=== PATIENT | male | born 1930 | race Caucasian/White ===

== ENCOUNTER 2016-07-12 15:58 | Outpatient (CLI) | payer MEDICARE, OTHER ==
[2016-07-12 16:19] LABS: ALT (SGPT) 21 U/L (0-55); AST (SGOT) 14 U/L (5-34); Albumin 3.1 g/dL (3.4-4.8); Alkaline Phosphatase 75 U/L (40-150); Anion Gap 16 mmol/L (10-20); BUN (Urea Nitrogen) 19 mg/dL (8.4-25.7); Bilirubin, Total 0.3 mg/dL (0.2-1.2); Calc. Creatinine Clearance 0 mL/min (70-130); Calcium 8.9 mg/dL (7.8-10.44); Carbon Dioxide 23 mmol/L (23-31); Chloride 105 mmol/L (98-107); Estimated GFR-MDRD 85; Globulin 3.5 g/dL (2.4-3.5); Glucose 111 mg/dL (83-110); Potassium 3.7 mmol/L (3.5-5.1); Protein, Total 6.6 g/dL (5.8-8.1); Sodium 140 mmol/L (136-145)
[2016-07-12 17:05] LABS: Valproic Acid (Depakene) Less than 12.5 ug/mL (50.0-100.0)
[2016-07-12 17:54] LABS: #Basophils 0.1 thou/uL (0.0-0.2); #Eosinphils 0.3 thou/uL (0.0-0.7); #Lymphocytes 2.3 thou/uL (1.20-3.40); #Neutrophils 10.8 thou/uL (1.40-6.50); %Basophils 0.4 % (0.0-1.0); %Eosinophils 2.4 % (0.0-10.0); %Lymphocytes 15.8 % (21.0-51.0); %Monocytes 6.8 % (0.0-10.0); %Neutrophils 74.6 % (42.0-75.0); Hemoglobin 14.1 g/dL (14.0-18.0); Mean Corpuscular Hemoglobin 29.1 pg (27.0-31.0); Mean Platelet Volume 6.9 fL (7.4-10.4); Platelet Count 315 thou/uL (130-400); RBC Distribution Width 12.6 % (11.5-14.5); Red Blood Cell (RBC) Count 4.86 mill/uL (4.70-6.10); White Blood Cell (WBC) Count 14.5 thou/uL (4.8-10.8)
== END 2016-07-12 15:59 ==
LOC: NAV NNR 15:58
PROVIDERS: ATTEND Internal Medicine
DX: I10 Essential (primary) hypertension (principal)
CPT/HCPCS: 80053; 80164; 84443; 85025

== ENCOUNTER 2016-10-12 18:00 | Outpatient (CLI) | payer MEDICARE, OTHER ==
[2016-10-12 21:09] LABS: #Basophils 0.1 thou/uL (0.0-0.2); #Eosinphils 0.2 thou/uL (0.0-0.7); #Lymphocytes 1.8 thou/uL (1.20-3.40); #Monocytes 0.7 thou/uL (0.11-0.59); #Neutrophils 7.4 thou/uL (1.40-6.50); %Basophils 0.6 % (0.0-1.0); %Eosinophils 1.7 % (0.0-10.0); %Lymphocytes 17.4 % (21.0-51.0); %Monocytes 6.9 % (0.0-10.0); %Neutrophils 73.4 % (42.0-75.0); Mean Corpuscular HGB CONC 31.7 g/dL (32.0-36.0); Mean Corpuscular Hemoglobin 28.6 pg (27.0-31.0); Mean Corpuscular Volume 90.2 fl (80.0-94.0); Mean Platelet Volume 7.4 fL (7.4-10.4); Platelet Count 250 thou/uL (130-400); RBC Distribution Width 13.4 % (11.5-14.5); Red Blood Cell (RBC) Count 5.24 mill/uL (4.70-6.10); White Blood Cell (WBC) Count 10.1 thou/uL (4.8-10.8)
[2016-10-12 21:23] LABS: ALT (SGPT) 14 U/L (8-55); AST (SGOT) 14 U/L (5-34); Albumin 3.7 g/dL (3.4-4.8); Alkaline Phosphatase 77 U/L (40-150); Anion Gap 15 mmol/L (10-20); BUN (Urea Nitrogen) 16 mg/dL (8.4-25.7); Bilirubin, Total 0.5 mg/dL (0.2-1.2); Calc. Creatinine Clearance 0 mL/min (70-130); Calcium 9.1 mg/dL (7.8-10.44); Carbon Dioxide 26 mmol/L (23-31); Chloride 104 mmol/L (98-107); Estimated GFR-MDRD 72; Globulin 2.9 g/dL (2.4-3.5); Glucose 135 mg/dL (83-110); Potassium 3.8 mmol/L (3.5-5.1); Protein, Total 6.6 g/dL (5.8-8.1); Sodium 141 mmol/L (136-145)
== END 2016-10-12 18:01 | disposition home or self-care (01) ==
LOC: NAV LABSP 18:00
PROVIDERS: ATTEND Internal Medicine
DX: I10 Essential (primary) hypertension (principal)
CPT/HCPCS: 36415; 80053; 84443; 85025

== ENCOUNTER 2016-11-30 12:50 | Outpatient (CLI) | payer MEDICARE, OTHER ==
[2016-11-30 14:19] LABS: ALT (SGPT) 9 U/L (8-55); AST (SGOT) 13 U/L (5-34); Albumin 4.1 g/dL (3.4-4.8); Alkaline Phosphatase 89 U/L (40-150); Anion Gap 13 mmol/L (10-20); BUN (Urea Nitrogen) 19 mg/dL (8.4-25.7); Bilirubin, Total 0.5 mg/dL (0.2-1.2); Calc. Creatinine Clearance 0 mL/min (70-130); Carbon Dioxide 27 mmol/L (23-31); Chloride 104 mmol/L (98-107); Estimated GFR-MDRD 72; Potassium 4.3 mmol/L (3.5-5.1); Protein, Total 7.1 g/dL (5.8-8.1); Sodium 140 mmol/L (136-145)
[2016-11-30 14:24] LABS: #Basophils 0.1 thou/uL (0.0-0.2); #Eosinphils 0.3 thou/uL (0.0-0.7); #Lymphocytes 5.2 thou/uL (1.20-3.40); #Neutrophils 5.3 thou/uL (1.40-6.50); %Basophils 0.6 % (0.0-1.0); %Eosinophils 2.7 % (0.0-10.0); %Lymphocytes 43.7 % (21.0-51.0); %Monocytes 8.8 % (0.0-10.0); %Neutrophils 44.2 % (42.0-75.0); Hemoglobin 15.2 g/dL (14.0-18.0); Mean Corpuscular HGB CONC 31.9 g/dL (32.0-36.0); Mean Corpuscular Hemoglobin 28.9 pg (27.0-31.0); Mean Corpuscular Volume 90.6 fl (80.0-94.0); Mean Platelet Volume 7.3 fL (7.4-10.4); Platelet Count 180 thou/uL (130-400); RBC Distribution Width 14.2 % (11.5-14.5); Red Blood Cell (RBC) Count 5.26 mill/uL (4.70-6.10); White Blood Cell (WBC) Count 11.9 thou/uL (4.8-10.8)
[2016-11-30 15:17] LABS: Glucose 55 mg/dL (83-110)
== END 2016-11-30 12:51 | disposition home or self-care (01) ==
LOC: NAV LABSP 12:50
PROVIDERS: ATTEND Internal Medicine
DX: I50.9 Heart failure, unspecified (principal); E03.9 Hypothyroidism, unspecified
CPT/HCPCS: 36415; 80053; 84443; 85025

== ENCOUNTER 2017-08-31 13:11 | Emergency (ER) | payer MEDICARE, OTHER ==
[2017-08-31 13:53] LABS: #Basophils 0.1 thou/uL (0.0-0.2); #Eosinphils 0.2 thou/uL (0.0-0.7); #Lymphocytes 1.9 thou/uL (1.20-3.40); #Monocytes 0.7 thou/uL (0.11-0.59); %Eosinophils 2.2 % (0.0-10.0); %Lymphocytes 21.5 % (21.0-51.0); %Monocytes 8.1 % (0.0-10.0); %Neutrophils 67.2 % (42.0-75.0); Hemoglobin 15.4 g/dL (14.0-18.0); Mean Corpuscular HGB CONC 32.1 g/dL (32.0-36.0); Mean Corpuscular Hemoglobin 28.2 pg (27.0-31.0); Mean Platelet Volume 7.5 fL (7.4-10.4); Platelet Count 163 thou/uL (130-400); RBC Distribution Width 12.9 % (11.5-14.5); Red Blood Cell (RBC) Count 5.44 mill/uL (4.70-6.10); White Blood Cell (WBC) Count 8.9 thou/uL (4.8-10.8)
[2017-08-31 14:05] LABS: CKMB 1.7 ng/mL (0-6.6); Troponin I Less than 0.010 ng/mL (< 0.028)
[2017-08-31 14:07] LABS: ALT (SGPT) 8 U/L (8-55); AST (SGOT) 12 U/L (5-34); Alkaline Phosphatase 97 U/L (40-150); Anion Gap 16 mmol/L (10-20); BUN (Urea Nitrogen) 21 mg/dL (8.4-25.7); Bilirubin, Total 0.6 mg/dL (0.2-1.2); CK (CPK) 48 U/L (30-200); Calc. Creatinine Clearance 0 mL/min (70-130); Calcium 9.2 mg/dL (7.8-10.44); Carbon Dioxide 25 mmol/L (23-31); Chloride 104 mmol/L (98-107); Estimated GFR-MDRD 63; Globulin 3.1 g/dL (2.4-3.5); Glucose 135 mg/dL (83-110); Potassium 4.8 mmol/L (3.5-5.1); Protein, Total 7.1 g/dL (5.8-8.1); Sodium 140 mmol/L (136-145)
--- NOTE | 2017-08-31 14:54 | RAD ---
2 VIEWS LEFT HIP: Date: 08/31/17 INDICATION: Left hip injury. FINDINGS: There is a lucency overlying the left ischial tuberosity on both images that appears to project as a skin fold. No definite displaced fracture is evident. There is a left hip endoprosthesis that project s in the expected position. There are vascular calcifications associated with the soft tissues of the left upper thigh. There is diffuse osteopenia. IMPRESSION: 1. No definite acute fracture or subluxation demonstrated. 2. Lucency projecting over the left ischial tuberosity is likely related to a gluteal skin fold. 3. Left hip endoprosthesis projects in the expected position without gross evidence of complication. POS: [facility]
== END 2017-08-31 14:55 | disposition home or self-care (01) ==
LOC: NAV ERS 13:11
DX: S80.212A Abrasion, left knee, initial encounter (principal); I25.10 Atherosclerotic heart disease of native coronary artery without angina pectoris; I11.0 Hypertensive heart disease with heart failure; I50.9 Heart failure, unspecified; E78.5 Hyperlipidemia, unspecified; E03.9 Hypothyroidism, unspecified; F03.90 Unspecified dementia, unspecified severity, without behavioral disturbance, psychotic disturbance, mood disturbance, and anxiety; F20.9 Schizophrenia, unspecified; Z87.891 Personal history of nicotine dependence; Z86.73 Personal history of transient ischemic attack (TIA), and cerebral infarction without residual deficits; Z79.899 Other long term (current) drug therapy; W19.XXXA Unspecified fall, initial encounter
CPT/HCPCS: 36415; 80053; 82553; 84484; 85025; 93005

== ENCOUNTER 2017-10-10 13:09 | Outpatient (CLI) | payer MEDICARE, OTHER ==
[2017-10-10 14:22] LABS: #Basophils 0.1 thou/uL (0.0-0.2); #Eosinphils 0.2 thou/uL (0.0-0.7); #Monocytes 0.7 thou/uL (0.11-0.59); #Neutrophils 5.8 thou/uL (1.40-6.50); %Basophils 0.7 % (0.0-1.0); %Eosinophils 1.9 % (0.0-10.0); %Lymphocytes 30.5 % (21.0-51.0); %Monocytes 7.3 % (0.0-10.0); %Neutrophils 59.6 % (42.0-75.0); Mean Corpuscular HGB CONC 31.1 g/dL (32.0-36.0); Mean Corpuscular Hemoglobin 27.4 pg (27.0-31.0); Mean Corpuscular Volume 88.1 fL (78.0-98.0); Mean Platelet Volume 7.8 fL (7.4-10.4); Platelet Count 258 thou/uL (130-400); RBC Distribution Width 13.1 % (11.5-14.5); Red Blood Cell (RBC) Count 5.46 mill/uL (4.70-6.10); White Blood Cell (WBC) Count 9.7 thou/uL (4.8-10.8)
[2017-10-10 14:32] LABS: ALT (SGPT) 10 U/L (8-55); AST (SGOT) 11 U/L (5-34); Albumin 3.9 g/dL (3.4-4.8); Alkaline Phosphatase 99 U/L (40-150); Anion Gap 17 mmol/L (10-20); BUN (Urea Nitrogen) 17 mg/dL (8.4-25.7); Bilirubin, Total 0.4 mg/dL (0.2-1.2); Calc. Creatinine Clearance 0 mL/min (70-130); Calcium 9.1 mg/dL (7.8-10.44); Carbon Dioxide 26 mmol/L (23-31); Chloride 103 mmol/L (98-107); Estimated GFR-MDRD 82; Globulin 2.9 g/dL (2.4-3.5); Glucose 85 mg/dL (83-110); Potassium 3.9 mmol/L (3.5-5.1); Protein, Total 6.8 g/dL (5.8-8.1); Sodium 142 mmol/L (136-145)
== END 2017-10-10 13:10 ==
LOC: NAV LABSP 13:09
PROVIDERS: ATTEND Internal Medicine
DX: I69.993 Ataxia following unspecified cerebrovascular disease (principal); J44.9 Chronic obstructive pulmonary disease, unspecified; I10 Essential (primary) hypertension
CPT/HCPCS: 36415; 80053; 85025

== ENCOUNTER 2017-12-31 12:54 | Inpatient (IN) | payer MEDICARE, OTHER ==
--- NOTE | 2017-12-31 14:23 | RAD ---
LEFT HIP 2 VIEWS: Date; 12/31/17 HISTORY: Pain. COMPARISON: Radiograph dated 08/31/17. FINDINGS: There appears to be a transversely oriented fracture of the acetabulum. Moderate vascular calcificati ons. IMPRESSION: Findings concerning for a transversely oriented fracture of the acetabulum. POS: [facility]
--- NOTE | 2017-12-31 15:39 | CT ---
CT PELVIS WITHOUT CONTRAST: Date: 12/31/17 HISTORY: Trauma. Fall. COMPARISON: Radiographs same date. FINDINGS: There is a destructive mass in the left ilium extending across the SI joint to involve the sacrum. Th ere is peripheral periosteal reaction. There is also a fracture of the left acetabulum extending into the posterior column and anterior column. There is fracture of the left superior pubic ramus involvi ng the left pubic root, as well as the left inferior pubic ramus. Old right-sided pubic rami fracture s. Large left pelvic side wall hematoma. IMPRESSION: Likely a pathologic fracture of the left hip. There is a both column left acetabular fracture throug h a lytic process of the left ilium which extends to the left SI joint and to the acetabulum. Large p elvic side wall hematoma. Left superior and inferior pubic rami fractures are present. POS: [facility]
[2017-12-31] MEDS ORDERED: Acetaminophen 500 MG TAB ONE (15:57)
[2017-12-31] MEDS ORDERED: Bacitracin Zinc 1 Packet ONE (16:05)
[2017-12-31] MEDS ORDERED: Acetaminophen 500 MG TAB PO SCH ×2 (18:00→22:00)
[2017-12-31] MEDS ORDERED: Acetaminophen 325 MG TAB PO PRN (19:23)
[2017-12-31] MEDS ORDERED: Guaifenesin DM 100-10/5 ML UDCUP PO PRN (19:23)
[2017-12-31] MEDS: Famotidine 20 MG TAB PO SCH (21:56)
[2017-12-31] MEDS: Docusate 100 MG CAP PO SCH (21:56)
[2018-01-01] MEDS: HYDROcodone/Acetaminophen 5/325 mg Tablet PO PRN ×4 (05:40→20:39)
[2018-01-01] MEDS: Levothyroxine Sodium 100 MCG TAB PO SCH (05:40)
[2018-01-01] MEDS: Amlodipine 5 MG TAB PO SCH (08:31)
[2018-01-01] MEDS: Docusate 100 MG CAP PO SCH ×3 (08:31→20:42)
[2018-01-01] MEDS: Famotidine 20 MG TAB PO SCH ×3 (08:31→20:43)
[2018-01-01] MEDS: Divalproex Sodium 125 mg Sprinkle Capsule PO SCH (08:31)
[2018-01-01] MEDS: Multivitamin W/ Minerals 1 TAB PO SCH (08:31)
[2018-01-01 11:23] LABS: #Basophils 0.1 thou/uL (0.0-0.2); #Eosinphils 0.3 thou/uL (0.0-0.7); #Lymphocytes 1.9 thou/uL (1.20-3.40); #Monocytes 0.8 thou/uL (0.11-0.59); #Neutrophils 7.5 thou/uL (1.40-6.50); %Basophils 0.7 % (0.0-1.0); %Eosinophils 2.5 % (0.0-10.0); %Lymphocytes 18.1 % (21.0-51.0); %Monocytes 7.5 % (0.0-10.0); %Neutrophils 71.2 % (42.0-75.0); Hemoglobin 11.7 g/dL (14.0-18.0); Mean Corpuscular HGB CONC 32.7 g/dL (32.0-36.0); Mean Corpuscular Hemoglobin 28.6 pg (27.0-31.0); Mean Corpuscular Volume 87.4 fL (78.0-98.0); Mean Platelet Volume 7.6 fL (7.4-10.4); Platelet Count 222 thou/uL (130-400); RBC Distribution Width 12.9 % (11.5-14.5); Red Blood Cell (RBC) Count 4.08 mill/uL (4.70-6.10); White Blood Cell (WBC) Count 10.6 thou/uL (4.8-10.8)
[2018-01-01 11:36] LABS: ALT (SGPT) 10 U/L (8-55); AST (SGOT) 11 U/L (5-34); Albumin 3.1 g/dL (3.4-4.8); Alkaline Phosphatase 96 U/L (40-150); Anion Gap 13 mmol/L (10-20); BUN (Urea Nitrogen) 23 mg/dL (8.4-25.7); Bilirubin, Total 0.6 mg/dL (0.2-1.2); Calc. Creatinine Clearance 40 mL/min (70-130); Calcium 8.6 mg/dL (7.8-10.44); Carbon Dioxide 26 mmol/L (23-31); Chloride 103 mmol/L (98-107); Estimated GFR-MDRD 70; Globulin 2.9 g/dL (2.4-3.5); Glucose 95 mg/dL (83-110); Sodium 138 mmol/L (136-145)
[2018-01-01] MEDS ORDERED: Haloperidol Lactate 5 MG/ML VIAL IM SCH (12:45)
[2018-01-01 13:41] VITALS: BMI 19.0
[2018-01-02] MEDS: HYDROcodone/Acetaminophen 5/325 mg Tablet PO PRN ×3 (03:49→15:40)
[2018-01-02] MEDS: Levothyroxine Sodium 100 MCG TAB PO SCH (06:04)
[2018-01-02 07:57] VITALS: BP 127/56; TEMP 98.7
[2018-01-02] MEDS: Docusate 100 MG CAP PO SCH (09:04)
[2018-01-02] MEDS: Multivitamin W/ Minerals 1 TAB PO SCH (09:04)
[2018-01-02] MEDS: Famotidine 20 MG TAB PO SCH (09:04)
[2018-01-02] MEDS: Amlodipine 5 MG TAB PO SCH (09:04)
[2018-01-02] MEDS: Divalproex Sodium 125 mg Sprinkle Capsule PO SCH (09:04)
--- NOTE | 2018-01-04 08:31 | DIS ---
DATE OF ADMISSION: 12/31/2017 DATE OF DISCHARGE: 01/02/2018 FINAL DIAGNOSES: 1. Pelvic fracture in the acetabulum and pubic ramus. 2. Stable hypertension. 3. Stable hyperlipidemia. 4. Stable hypothyroidism. 5. Mild dementia. 6. Chronic obstructive pulmonary disease. HOSPITAL COURSE: Patient is an 87-year-old, white male living at the assisted secondary to demen tia, who has fallen and suffered pain in the left hip, was found to have a pathologic fracture of the left acetabulum and pelvic ramus, but with no left femur fracture, was admitted to the hospital for pain relief, had good pain relief, but was unable to cooperate with any therapy, he refused because o f his dementia. His bone disease was evaluated with a normal protein electrophoresis and a normal PS A. As mentioned above, he appeared to be comfortable at rest, on oral pain medications, and therefor e, he is felt to be stable to be transferred back to the assisted on medications of amlodipine 5 daily, levothyroxine 100 mcg daily, Depakote 125 daily, Tylenol as needed for pain. Follow up with ashli cabrera at the assisted. On discharge, his vital signs showed him to have blood pressure of 127/56 , temperature is 98, pulse 79, respirations 18, O2 sats 94% on room air. Lungs clear with decreased breath sounds. Cardiac examination showed regular rate and rhythm. No gallops or murmurs. Abdomen was soft and nontender.
--- NOTE | 2018-01-04 08:31 | HP ---
DATE OF ADMISSION: 12/31/2017 HISTORY OF PRESENT ILLNESS: The patient is an 87-year-old white male living in residential secondar y to mild dementia, COPD, hypertension who fell and suffered pain in his left leg was evaluated and f ound to have pelvic fracture, acetabular fracture and pubic ramus fracture, but with no femur fractur e, was admitted to [facility] for pain relief, having no problems with shortness of breath, wa s comfortable after pain meds and no problem with bleeding or changes in his vital signs. PAST MEDICAL HISTORY: Includes congestive heart failure, hypothyroidism, hyperlipidemia, hypertensio n, COPD, ischemic cerebrovascular accident. PAST SURGICAL HISTORY: Positive for open reduction internal fixation left hip fracture. SOCIAL HISTORY: Lives at the residential was a former smoker and drinker, none in 10 years. No kno wn allergies. MEDICATIONS: Including levothyroxine 100 mcg daily, Norvasc 5 daily. REVIEW OF SYSTEMS: Negative with the patient is a poor historian. PHYSICAL EXAMINATION: VITAL SIGNS: Showed blood pressure of 119/62, respirations 20, temperature 97.6. HEENT: Pupils are equal, round, and react to light and accommodation. Sclerae are anicteric. Conju nctivae pale. Oral mucous membranes well hydrated. NECK: Supple. There are no nodes or masses. JVP is not elevated. LUNGS: Clear with decreased breath sounds. CARDIAC: Regular rhythm. No gallops or murmurs. ABDOMEN: Soft, nontender with no masses or organomegaly. SKIN/EXTREMITIES: An abrasion on the left elbow. There is tenderness to palpation of the left hip e xternally rotated. X-rays show above-mentioned acetabular fracture, pubic ramus fracture. ASSESSMENT AND PLAN: 1. Pelvic fracture, stable with white count 10,600, hematocrit 35, hemoglobin 11. Sodium 138, potas sium 4.0, chloride 103, bicarb 26, BUN 23, creatinine 1.01, albumin 3.1, but with CT report stating t hat possibly pathologic fracture with a lytic process in the left ilium. 2. Chronic obstructive pulmonary disease. 3. Hypertension. PLAN: Admit to the hospital for pain relief, evaluate for lytic pathologic bone disease with p rotein electrophoresis and with PSA.
[2018-01-08 17:13] LABS: A/G Ratio 0.8 (0.7-1.7); Albumin 2.7 g/dL (2.9-4.4); Alpha 1 0.5 g/dL (0.0-0.4); Beta 0.8 g/dL (0.7-1.3); Gamma 1.2 g/dL (0.4-1.8); Globulin, Total 3.4 g/dL (2.2-3.9); M-Spike Not Observed g/dL (Not Observed)
== END 2018-01-02 19:35 | DRG 544 ==
LOC: NAV ERS 12:54 → NAV ACUTE 17:05
PROVIDERS: ADMIT Internal Medicine; ATTEND Internal Medicine
DX: M84.454A Pathological fracture, pelvis, initial encounter for fracture (principal); F03.90 Unspecified dementia, unspecified severity, without behavioral disturbance, psychotic disturbance, mood disturbance, and anxiety; I25.10 Atherosclerotic heart disease of native coronary artery without angina pectoris; E03.9 Hypothyroidism, unspecified; E78.5 Hyperlipidemia, unspecified; I10 Essential (primary) hypertension; Z86.73 Personal history of transient ischemic attack (TIA), and cerebral infarction without residual deficits; Z87.891 Personal history of nicotine dependence; W18.09XA Striking against other object with subsequent fall, initial encounter; Y92.129 Unspecified place in nursing home as the place of occurrence of the external cause; J44.9 Chronic obstructive pulmonary disease, unspecified; Z91.81 History of falling
CPT/HCPCS: 36415; 72192; 80053; 84153; 84165; 85025; J1630

== ENCOUNTER 2018-02-13 13:33 | Outpatient (CLI) | payer MEDICARE, OTHER ==
[2018-02-13 16:37] LABS: Bilirubin Small (Negative); Blood, Urine Small (Negative); Clarity Cloudy (Clear); Glucose, Urine (Dipstick) Negative (Negative); Leukocyte Moderate (Negative); Nitrite Positive (Negative); Protein, Urine (Dipstick) 30 mg/dL (Neg-Trace); pH, Urine 5.5 (5.0-9.0)
[2018-02-13 16:38] LABS: Bacteria/HPF 2+ HPF (None Seen)
== END 2018-02-13 13:34 | disposition home or self-care (01) ==
LOC: NAV NNR 13:33
PROVIDERS: ATTEND Internal Medicine
DX: N39.0 Urinary tract infection, site not specified (principal)
CPT/HCPCS: 81003; 81015; 87086

== ENCOUNTER 2018-02-13 16:19 | Inpatient (IN) | payer MEDICARE, OTHER ==
[2018-02-13] MEDS ORDERED: Piperacillin/Tazobactam 3.375 GM VIAL ONE (16:49)
[2018-02-13] MEDS ORDERED: Sodium Chloride 0.9% 1,000 ML ONE ×2 (17:00→18:27)
[2018-02-13 17:21] LABS: ALT (SGPT) 16 U/L (8-55); AST (SGOT) 19 U/L (5-34); Albumin 3.3 g/dL (3.4-4.8); Alkaline Phosphatase 135 U/L (40-150); Anion Gap 16 mmol/L (10-20); BUN (Urea Nitrogen) 40 mg/dL (8.4-25.7); Bilirubin, Total 0.6 mg/dL (0.2-1.2); Calc. Creatinine Clearance 0 mL/min (70-130); Calcium 9.3 mg/dL (7.8-10.44); Carbon Dioxide 26 mmol/L (23-31); Chloride 104 mmol/L (98-107); Estimated GFR-MDRD 50; Globulin 3.7 g/dL (2.4-3.5); Glucose 95 mg/dL (83-110); Potassium 3.9 mmol/L (3.5-5.1); Sodium 142 mmol/L (136-145)
[2018-02-13 17:22] LABS: CKMB 0.7 ng/mL (0-6.6); Troponin I 0.018 ng/mL (< 0.028)
[2018-02-13] MEDS ORDERED: Sodium Chloride 0.9% 250 ML 250 ML ONE (17:29)
[2018-02-13 17:36] LABS: Band 2 % (5-11); Hemoglobin 10.6 g/dL (14.0-18.0); Lymphocytes 14 % (21-51); MDiff Complete? YES; Mean Corpuscular HGB CONC 31.2 g/dL (32.0-36.0); Mean Corpuscular Hemoglobin 27.5 pg (27.0-31.0); Mean Corpuscular Volume 88.1 fL (78.0-98.0); Mean Platelet Volume 7.1 fL (7.4-10.4); Monocytes 1 % (0-10); Neutrophil 83 % (42-75); PLT Morphology Comment Appears Adequate; Platelet Count 395 thou/uL (130-400); RBC Distribution Width 13.9 % (11.5-14.5); RBC Morphology Normal; Red Blood Cell (RBC) Count 3.87 mill/uL (4.70-6.10); White Blood Cell (WBC) Count 22.5 thou/uL (4.8-10.8)
[2018-02-13] MEDS ORDERED: Ondansetron ODT 4 MG TAB PO PRN (20:15)
[2018-02-13] MEDS ORDERED: Guaifenesin DM 100-10/5 ML UDCUP PO PRN (20:15)
[2018-02-13] MEDS ORDERED: Sodium Chloride 0.9% 1,000 ML IV SCH (20:30)
[2018-02-13] MEDS ORDERED: Famotidine 20 MG TAB PO SCH (21:00)
[2018-02-13] MEDS ORDERED: Vancomycin HCl 1 GM in Sodium Chloride 0.9% 250 ML 250 ML IVPB SCH (21:00)
[2018-02-13] MEDS: Sodium Chloride 0.9% 1,000 ML IV SCH (22:19)
[2018-02-13] MEDS: PROVENTIL INHALER 6.7 G (200 INHALATIONS) INH SCH (22:54)
[2018-02-13] MEDS: Piperacillin/Tazobactam 2.25 GM in Sodium Chloride 0.9% 100 ML IVPB SCH (22:55)
[2018-02-13] MEDS: Docusate 100 MG CAP PO SCH (22:55)
[2018-02-14] MEDS ORDERED: Piperacillin/Tazobactam 3.375 GM in Sodium Chloride 0.9% 100 ML IVPB SCH (01:00)
[2018-02-14] MEDS: PROVENTIL INHALER 6.7 G (200 INHALATIONS) INH SCH ×6 (02:04→21:11)
[2018-02-14] MEDS: Sodium Chloride 0.9% 1,000 ML IV SCH (04:30)
[2018-02-14 05:14] LABS: #Basophils 0.1 thou/uL (0.0-0.2); #Lymphocytes 2.4 thou/uL (1.20-3.40); #Neutrophils 16.5 thou/uL (1.40-6.50); %Basophils 0.3 % (0.0-1.0); %Eosinophils 0.1 % (0.0-10.0); %Lymphocytes 11.8 % (21.0-51.0); %Monocytes 5.1 % (0.0-10.0); %Neutrophils 82.7 % (42.0-75.0); Hemoglobin 9.4 g/dL (14.0-18.0); Mean Corpuscular HGB CONC 32.2 g/dL (32.0-36.0); Mean Corpuscular Hemoglobin 28.3 pg (27.0-31.0); Mean Platelet Volume 6.9 fL (7.4-10.4); Platelet Count 301 thou/uL (130-400); RBC Distribution Width 13.8 % (11.5-14.5); Red Blood Cell (RBC) Count 3.33 mill/uL (4.70-6.10)
[2018-02-14 05:34] LABS: ALT (SGPT) 13 U/L (8-55); AST (SGOT) 15 U/L (5-34); Albumin 2.9 g/dL (3.4-4.8); Alkaline Phosphatase 116 U/L (40-150); Anion Gap 14 mmol/L (10-20); BUN (Urea Nitrogen) 32 mg/dL (8.4-25.7); Bilirubin, Total 0.6 mg/dL (0.2-1.2); Calc. Creatinine Clearance 35 mL/min (70-130); Calcium 8.5 mg/dL (7.8-10.44); Carbon Dioxide 22 mmol/L (23-31); Chloride 113 mmol/L (98-107); Estimated GFR-MDRD 67; Globulin 3.1 g/dL (2.4-3.5); Glucose 101 mg/dL (83-110); Potassium 4.4 mmol/L (3.5-5.1); Sodium 145 mmol/L (136-145)
[2018-02-14] MEDS: Levothyroxine Sodium 50 MCG TAB PO SCH (06:07)
[2018-02-14] MEDS: Piperacillin/Tazobactam 2.25 GM in Sodium Chloride 0.9% 100 ML IVPB SCH ×4 (06:08→23:57)
[2018-02-14] MEDS ORDERED: Sodium Chloride 0.9% 1,000 ML IV SCH (06:40)
[2018-02-14] MEDS: Amlodipine 5 MG TAB PO SCH (08:35)
[2018-02-14] MEDS: Famotidine 20 MG TAB PO SCH (08:35)
[2018-02-14] MEDS: Multivitamin W/ Minerals 1 TAB PO SCH (08:36)
[2018-02-14] MEDS: Ketotifen Fumarate 0.025% Ophth Soln 5 ml Bottle EA EYE SCH ×2 (08:36→21:10)
[2018-02-14] MEDS: Docusate 100 MG CAP PO SCH ×2 (08:36→21:10)
[2018-02-14] MEDS ORDERED: Non-Formulary Item 1 EACH (Olopatadine Hcl [Pataday] 1 DROP) EA EYE SCH (09:00)
[2018-02-14] MEDS: Vancomycin HCl 500 MG in Sodium Chloride 0.9% 100 ML IVPB SCH (18:09)
--- NOTE | 2018-02-14 19:44 | RAD ---
PORTABLE SEMI UPRIGHT FRONTRAL CHEST RADIOGRAPH: Date: 02-14-18 Comparison: 05-15-15 History: Pneumonia. FINDINGS: There is calcification along the diaphragmatic pleura on the right. Shallow inspiration limits detail ed assessment. There is mild increased linear density in the right suprahilar region and left suprahi lar region which may represent mild infiltrate, volume loss, or scar. No focal consolidation. There i s increased density in the medial left lung base, significance uncertain. Old left sided rib fracture s are noted. IMPRESSION: Shallow inspiration limits assessment. Increased areas of density noted in bilateral perihilar region s and in the medial left lung base. Infectious pneumonitis is not excluded. A follow up PA and latera l chest radiograph with better inspiration is advised for further assessment. If symptoms persist, CT may be beneficial as well. POS: [facility]
--- NOTE | 2018-02-14 20:06 | PRG ---
DATE OF SERVICE: 02/14/2018 SUBJECTIVE: The patient is resting in bed, alert, cheerful, in no respiratory distress. No cough, nausea, vomiting, or chest pain. The patient is eating well. OBJECTIVE: VITAL SIGNS: Show blood pressure is 133/59, respirations 22, O2 saturation is 94% on 2 L, and afebrile. LUNGS: Show few rales and rhonchi in the right base. CARDIAC: Regular rhythm. ABDOMEN: Soft and nontender. LABORATORY DATA: Improved to 20,000, hematocrit 29, and hemoglobin 9.4. BUN is improved to 32 and creatinine 1.04. BNP is slightly elevated at 147. Sodium is 145, potassium 4.4, chloride 113, and bicarb 22. ASSESSMENT AND PLAN: 1. Resolving pneumonia. No evidence of sepsis. 2. Chronic obstructive pulmonary disease, stable on handheld nebulizers. 3. Probable diastolic heart failure with mildly elevated BNP. We will decrease and repeat chest x-ray. Job ID: [id number]
[2018-02-15] MEDS: PROVENTIL INHALER 6.7 G (200 INHALATIONS) INH SCH ×6 (00:36→20:20)
--- NOTE | 2018-02-15 03:07 | HP ---
HISTORY OF PRESENT ILLNESS: The patient is an 87-year-old white [facility] with diagnosis of dementia, COPD, hypertension, who was recently followed and suffered an acetabular pubic ramus fracture and has been bedridden since that time, but had been doing well with no dyspnea, chest pain or shortness of breath until several days prior to admission, began to have increasing cough and some respiratory distress. He had chest x-ray done, which showed right lower lobe infiltrate and an increased white count to 31,000. He did not have any fever, but was felt to require transfer to the hospital. He was evaluated in the emergency room, where the ER physician agreed that he required admission. He was not septic with normal lactate and normal vital signs and oxygenation. He was confused, but this was at his baseline. He was therefore felt to be able to be admitted to [facility] for treatment of his healthcare-associated pneumonia. PAST MEDICAL HISTORY: As mentioned above is remarkable for COPD, also for history of fall and multiple rib fractures in the distal past. He also has a history of hypertension and congestive heart failure, a distant history of CVA and chronic hypothyroidism as well as progressive dementia. PAST SURGICAL HISTORY: Positive for open reduction and internal fixation of a left hip fracture. SOCIAL HISTORY: [facility]. He is a nonsmoker and nondrinker, but was a former smoker. ALLERGIES: HE HAS NO KNOWN ALLERGIES. MEDICATIONS: His medications include at this time: 1. Amlodipine 5 mg daily. 2. Depakote 250 mg daily. 3. Famotidine 20 mg twice daily. 4. Levothyroxine 50 mcg daily. 5. Multivitamins. 6. Tylenol No.3. REVIEW OF SYSTEMS: Essentially negative as the patient is a very poor historian. He is denying chest pain, shortness of breath, cough, nausea or vomiting. PHYSICAL EXAMINATION: VITAL SIGNS: His blood pressure is 159/92, respirations 22, O2 sats 84% on room air which increased to 96% with 2 L, and pulse 67. He is afebrile. HEENT: Pupils are equal, round, and reactive to light and accommodation. Sclerae anicteric. There are dental caries. Oral mucous membranes, well hydrated. NECK: Some torticollis chronically with no pain, stiffness or swelling. LUNGS: Decreased breath sounds with few rales and rhonchi on the right base. Rare wheezes and rhonchi with no rales. CARDIAC: Regular rhythm. No gallops or murmurs. ABDOMEN: Soft and nontender with no masses or organomegaly. SKIN/EXTREMITIES: No edema, clubbing or cyanosis, do show some tenderness to palpation of the left hip on movement. NEUROLOGIC: Intact except for mild confusion, oriented to person only. LABORATORY DATA: White count 22,500, hematocrit 34, and hemoglobin 10. Sodium 142, potassium 3.9, chloride 104, bicarb 26, BUN 40, creatinine 1.34, and lactate 1.7. Liver function is normal. Cardiac enzyme is normal. Chest x-ray is reported as showing a right lower lobe infiltrate. ASSESSMENT: Right lower lobe healthcare-associated pneumonia, being treated with broad-spectrum vancomycin and Zosyn. Blood cultures have been done and results of which are pending. He will be continued on handheld nebulizers q.i.d. and p.r.n., 2 L of oxygen to maintain saturations greater than 93%, and start on IV fluids at 125 an hour to ensure no increase in possible sepsis or septic shock. Prognosis is guarded. He is not to be resuscitated as per family's request. Job ID: [id number]
[2018-02-15] MEDS: Levothyroxine Sodium 50 MCG TAB PO SCH (05:08)
[2018-02-15] MEDS: Piperacillin/Tazobactam 2.25 GM in Sodium Chloride 0.9% 100 ML IVPB SCH ×4 (05:33→23:54)
[2018-02-15] MEDS: Ketotifen Fumarate 0.025% Ophth Soln 5 ml Bottle EA EYE SCH ×2 (08:43→20:22)
[2018-02-15] MEDS: Docusate 100 MG CAP PO SCH ×2 (08:44→20:20)
[2018-02-15] MEDS: Acetaminophen 325 MG TAB PO PRN ×2 (08:44→17:35)
[2018-02-15] MEDS: Famotidine 20 MG TAB PO SCH (08:44)
[2018-02-15] MEDS: Amlodipine 5 MG TAB PO SCH (08:44)
[2018-02-15] MEDS: Multivitamin W/ Minerals 1 TAB PO SCH (08:44)
[2018-02-15] MEDS: Sodium Chloride 0.9% 1,000 ML IV SCH (11:40)
[2018-02-15 17:24] LABS: Vancomycin, Trough 7.6 ug/mL
[2018-02-15] MEDS: Vancomycin HCl 500 MG in Sodium Chloride 0.9% 100 ML IVPB SCH (17:35)
[2018-02-15] MEDS ORDERED: Vancomycin HCl 750 MG in Sodium Chloride 0.9% 250 ML 250 ML IVPB SCH (20:00)
[2018-02-16] MEDS: PROVENTIL INHALER 6.7 G (200 INHALATIONS) INH SCH ×6 (00:35→20:01)
[2018-02-16 05:12] VITALS: BMI 16.2
[2018-02-16] MEDS: Piperacillin/Tazobactam 2.25 GM in Sodium Chloride 0.9% 100 ML IVPB SCH ×3 (05:15→18:02)
[2018-02-16] MEDS: Levothyroxine Sodium 50 MCG TAB PO SCH (05:15)
[2018-02-16 05:18] LABS: #Basophils 0.1 thou/uL (0.0-0.2); #Lymphocytes 1.5 thou/uL (1.20-3.40); #Monocytes 0.8 thou/uL (0.11-0.59); #Neutrophils 9.4 thou/uL (1.40-6.50); %Basophils 0.4 % (0.0-1.0); %Eosinophils 0.4 % (0.0-10.0); %Lymphocytes 12.4 % (21.0-51.0); %Monocytes 7.1 % (0.0-10.0); %Neutrophils 79.7 % (42.0-75.0); Hemoglobin 8.8 g/dL (14.0-18.0); Mean Corpuscular HGB CONC 31.2 g/dL (32.0-36.0); Mean Corpuscular Hemoglobin 27.6 pg (27.0-31.0); Mean Corpuscular Volume 88.4 fL (78.0-98.0); Mean Platelet Volume 7.3 fL (7.4-10.4); Platelet Count 293 thou/uL (130-400); RBC Distribution Width 13.8 % (11.5-14.5); Red Blood Cell (RBC) Count 3.17 mill/uL (4.70-6.10); White Blood Cell (WBC) Count 11.8 thou/uL (4.8-10.8)
[2018-02-16 05:31] LABS: ALT (SGPT) 19 U/L (8-55); AST (SGOT) 23 U/L (5-34); Albumin 2.7 g/dL (3.4-4.8); Alkaline Phosphatase 99 U/L (40-150); Anion Gap 15 mmol/L (10-20); BUN (Urea Nitrogen) 20 mg/dL (8.4-25.7); Bilirubin, Total 0.5 mg/dL (0.2-1.2); Calc. Creatinine Clearance 51 mL/min (70-130); Calcium 8.6 mg/dL (7.8-10.44); Carbon Dioxide 22 mmol/L (23-31); Chloride 109 mmol/L (98-107); Estimated GFR-MDRD Greater than 90; Globulin 2.9 g/dL (2.4-3.5); Glucose 103 mg/dL (83-110); Potassium 3.5 mmol/L (3.5-5.1); Protein, Total 5.6 g/dL (5.8-8.1); Sodium 142 mmol/L (136-145)
[2018-02-16] MEDS: Famotidine 20 MG TAB PO SCH (09:32)
[2018-02-16] MEDS: Multivitamin W/ Minerals 1 TAB PO SCH (09:32)
[2018-02-16] MEDS: Ketotifen Fumarate 0.025% Ophth Soln 5 ml Bottle EA EYE SCH ×2 (09:32→20:02)
[2018-02-16] MEDS: Amlodipine 5 MG TAB PO SCH (09:32)
[2018-02-16] MEDS: Docusate 100 MG CAP PO SCH ×2 (09:32→20:02)
--- NOTE | 2018-02-16 16:42 | PRG ---
DATE OF SERVICE: 02/16/2018 SUBJECTIVE: Mr. Alegria is a very pleasant 87-year-old white male, who lives at the custodial with diagnosis of dementia, COPD, hypertension. Unfortunately, he fell and had resultant acetabular pubic rami fracture and has been bedridden. He started having some cough, was brought to the emergency room where x-ray showed right lower lobe infiltrate and white count up to 31,000. He was transferred to the hospital and started on vancomycin and Zosyn. Blood culture results are pending. Started on handheld nebulizers. He states he is feeling somewhat better. PHYSICAL EXAMINATION: VITAL SIGNS: Today reveal blood pressure this morning 136/84, pulse 85, respirations 20 to 30, O2 sat 95% to 98% on 2 L nasal cannula, T max 98.0. GENERAL: This is a well-developed, well-nourished, very pleasant white male, in no apparent distress at this time. HEENT: Reveals normocephalic, nontraumatic cranium. The pupils are equally round and reactive. Extraocular movements are intact. Nose and throat are slightly dry. NECK: Supple. No masses, nodes, or bruits are noted. CHEST: Clear, but distant. HEART: Reveals a regular rate and rhythm without murmurs, gallops, or rubs. ABDOMEN: Soft, nontender without organomegaly. Normal bowel sounds are noted. No rebound or guarding is noted. : Deferred. EXTREMITIES: Reveal no clubbing, cyanosis, or edema. ASSESSMENT: 1. Resolving pneumonia. 2. Chronic obstructive pulmonary disease. 3. Diastolic congestive heart failure. 4. Acetabular pubic rami fracture. 5. Right lower lobe pneumonia with an initial white count of 31,000, now down to 11,800. PLAN: 1. Continue present antibiotic dosing. 2. Continue handheld nebulizers. 3. Continue supportive care. 4. Continue present IV antibiotics. 5. We will repeat lab on Sunday. Job ID: [id number]
[2018-02-16] MEDS: Vancomycin HCl 750 MG in Sodium Chloride 0.9% 250 ML 250 ML IVPB SCH (20:01)
[2018-02-17] MEDS: Piperacillin/Tazobactam 2.25 GM in Sodium Chloride 0.9% 100 ML IVPB SCH ×4 (00:10→18:08)
[2018-02-17] MEDS: PROVENTIL INHALER 6.7 G (200 INHALATIONS) INH SCH ×7 (03:18→20:45)
[2018-02-17] MEDS: Sodium Chloride 0.9% 1,000 ML IV SCH (06:13)
[2018-02-17] MEDS: Levothyroxine Sodium 50 MCG TAB PO SCH ×2 (06:14→06:23)
[2018-02-17] MEDS: Amlodipine 5 MG TAB PO SCH (09:20)
[2018-02-17] MEDS: Famotidine 20 MG TAB PO SCH (09:20)
[2018-02-17] MEDS: Docusate 100 MG CAP PO SCH ×2 (09:20→20:50)
[2018-02-17] MEDS: Multivitamin W/ Minerals 1 TAB PO SCH (09:21)
[2018-02-17] MEDS: Ketotifen Fumarate 0.025% Ophth Soln 5 ml Bottle EA EYE SCH ×2 (09:21→20:46)
[2018-02-17] MEDS: Vancomycin HCl 750 MG in Sodium Chloride 0.9% 250 ML 250 ML IVPB SCH (20:44)
[2018-02-18] MEDS: Piperacillin/Tazobactam 2.25 GM in Sodium Chloride 0.9% 100 ML IVPB SCH ×2 (00:23→06:16)
[2018-02-18] MEDS: PROVENTIL INHALER 6.7 G (200 INHALATIONS) INH SCH ×6 (02:33→21:51)
[2018-02-18 05:35] LABS: Anisocytosis SLIGHT = 6-15 cells (100X) (0-5/hpf); Band 10 % (5-11); Eosinophils 1 % (0-10); Hemoglobin 9.2 g/dL (14.0-18.0); Hypochromia SLIGHT = 6-15 cells (100X) (0-5/hpf); Lymphocytes 17 % (21-51); MDiff Complete? YES; Mean Corpuscular HGB CONC 31.2 g/dL (32.0-36.0); Mean Corpuscular Hemoglobin 27.2 pg (27.0-31.0); Mean Platelet Volume 7.2 fL (7.4-10.4); Monocytes 3 % (0-10); Neutrophil 69 % (42-75); PLT Morphology Comment Appears Adequate; Platelet Count 312 thou/uL (130-400); RBC Distribution Width 13.9 % (11.5-14.5); White Blood Cell (WBC) Count 11.5 thou/uL (4.8-10.8)
[2018-02-18 05:39] LABS: ALT (SGPT) 16 U/L (8-55); AST (SGOT) 19 U/L (5-34); Albumin 2.6 g/dL (3.4-4.8); Alkaline Phosphatase 92 U/L (40-150); Anion Gap 13 mmol/L (10-20); BUN (Urea Nitrogen) 12 mg/dL (8.4-25.7); Bilirubin, Total 0.5 mg/dL (0.2-1.2); Calc. Creatinine Clearance 53 mL/min (70-130); Calcium 8.5 mg/dL (7.8-10.44); Carbon Dioxide 23 mmol/L (23-31); Chloride 105 mmol/L (98-107); Estimated GFR-MDRD Greater than 90; Globulin 2.9 g/dL (2.4-3.5); Glucose 90 mg/dL (83-110); Potassium 3.3 mmol/L (3.5-5.1); Protein, Total 5.5 g/dL (5.8-8.1); Sodium 138 mmol/L (136-145)
[2018-02-18] MEDS: Levothyroxine Sodium 50 MCG TAB PO SCH (06:16)
[2018-02-18] MEDS: Sodium Chloride 0.9% 1,000 ML IV SCH (06:18)
--- NOTE | 2018-02-18 07:51 | PRG ---
DATE OF SERVICE: 02/17/2018 SUBJECTIVE: Mr. Alegria is an 87-year-old white male, who lives at the [facility] with diagnosis of dementia, COPD, and hypertension. The patient fell and had an acetabular pubic rami fracture. He has been bedridden and started having some cough and unfortunately developed a right lower lobe infiltrate with white count of 31,000. He was transferred to the hospital and started on vancomycin and Zosyn. Blood cultures are pending. He was also started on handheld nebulizers. He does feel better today. His dementia tends to wax and wane. OBJECTIVE: VITAL SIGNS: Today reveal blood pressure 129/73, pulse 86 to 91, respirations 20 to 24, O2 sat 96% to 97% on 2 L, T-max 99.1. GENERAL: This is a well-developed, well-nourished, thin white male, in no apparent distress at this time. HEENT: Reveals normocephalic and nontraumatic cranium. The pupils are equally round and reactive. Extraocular movements are intact. Nose and throat are slightly dry. NECK: Supple without masses, nodes, or bruits. CHEST: Clear, but breath sounds are very distant. HEART: Reveals a regular rate and rhythm. No murmurs, gallops, or rubs are appreciated. ABDOMEN: Soft, nontender without organomegaly. Scaphoid. Normal bowel sounds are noted. No rebound or guarding is noted. : Deferred. EXTREMITIES: Reveal no clubbing, cyanosis, or edema. ASSESSMENT: 1. Resolving pneumonia. 2. Chronic obstructive pulmonary disease. 3. Diastolic congestive heart failure. 4. Acetabular pubic rami fracture. 5. Right lower lobe pneumonia with an initial white count of 31,000, now decreased down to 11,000 or less. PLAN: 1. Continue present antibiotic dosing. 2. Continue handheld nebs. 3. Continue supportive care. 4. Continue present IV antibiotics. 5. We will repeat labs on Sunday. Job ID: [id number]
[2018-02-18] MEDS: Ketotifen Fumarate 0.025% Ophth Soln 5 ml Bottle EA EYE SCH ×2 (08:54→21:59)
[2018-02-18] MEDS: Amlodipine 5 MG TAB PO SCH (09:05)
[2018-02-18] MEDS: Multivitamin W/ Minerals 1 TAB PO SCH (09:06)
[2018-02-18] MEDS: Famotidine 20 MG TAB PO SCH (09:06)
[2018-02-18] MEDS: Docusate 100 MG CAP PO SCH ×2 (09:24→21:59)
[2018-02-18] MEDS ORDERED: Cefdinir 300 MG CAP PO SCH (11:15)
--- NOTE | 2018-02-18 13:12 | PRG ---
DATE OF SERVICE: 02/15/2018 SUBJECTIVE: The patient feels much better. No complaints of shortness of breath, chest pain, cough. Eating very well. OBJECTIVE: VITAL SIGNS: Show temperature of 97.7, pulse is 95, respirations 24, O2 sats 96% on 2 L, blood pressure 129/66. LUNGS: Show only few rhonchi in the bases. CARDIAC: Showed regular rhythm. ABDOMEN: Soft and nontender. ASSESSMENT: 1. Resolving left lower lobe pneumonia. No evidence of sepsis. 2. Stable chronic obstructive pulmonary disease with persistent hypoxemia, but decreased bronchospasm on handheld nebulizers. 3. Diastolic heart failure, mildly elevated BNP, off IV fluids with repeat chest x-ray ordered. Job ID: [id number]
--- NOTE | 2018-02-18 14:51 | RAD ---
PORTABLE AP CHEST: Date: 02/18/18 HISTORY: Pneumonia. COMPARISON: 02/14/18. FINDINGS: Patient is rotated, which accentuates the mediastinal and hilar structures. Patient's arm overlies th e lateral aspect of the left lung base, limiting evaluation of left lateral lung base. Calcified pleu ral based plaques are seen along the right hemidiaphragm. Linear densities are again seen within the right mid lung zone and right hilar region, also present on prior study. This again could be related to either volume loss or developing infectious process or possibly scarring given prior interstitial process noted on prior studies in 2016. Linear densities at the left lung base are probably related t o mild scarring. Vascular calcifications seen in the thoracic aorta. IMPRESSION: 1. Persistent linear densities within the right mid lung zone, unchanged from study on 02/14/18. Fin dings again could be related to atelectasis or scarring, but pneumonitis again cannot be entirely exc luded. Continued follow-up is suggested. 2. Calcified pleural based plaque right lung base. POS: [facility]
[2018-02-18] MEDS: Cefdinir 300 MG CAP PO SCH (21:51)
[2018-02-19] MEDS: PROVENTIL INHALER 6.7 G (200 INHALATIONS) INH SCH ×6 (02:12→21:46)
[2018-02-19] MEDS: Levothyroxine Sodium 50 MCG TAB PO SCH (06:14)
[2018-02-19] MEDS: Multivitamin W/ Minerals 1 TAB PO SCH (08:28)
[2018-02-19] MEDS: Cefdinir 300 MG CAP PO SCH ×2 (08:28→21:47)
[2018-02-19] MEDS: Ketotifen Fumarate 0.025% Ophth Soln 5 ml Bottle EA EYE SCH ×2 (08:29→21:46)
[2018-02-19] MEDS: Famotidine 20 MG TAB PO SCH (08:31)
[2018-02-19] MEDS: Amlodipine 5 MG TAB PO SCH (08:33)
[2018-02-19] MEDS: Docusate 100 MG CAP PO SCH ×2 (09:11→21:48)
[2018-02-20] MEDS: PROVENTIL INHALER 6.7 G (200 INHALATIONS) INH SCH ×3 (02:21→08:15)
[2018-02-20] MEDS: Levothyroxine Sodium 50 MCG TAB PO SCH (06:07)
[2018-02-20] MEDS: Docusate 100 MG CAP PO SCH (08:15)
[2018-02-20] MEDS: Cefdinir 300 MG CAP PO SCH (08:15)
[2018-02-20] MEDS: Amlodipine 5 MG TAB PO SCH (08:15)
[2018-02-20] MEDS: Ketotifen Fumarate 0.025% Ophth Soln 5 ml Bottle EA EYE SCH (08:15)
[2018-02-20] MEDS: Famotidine 20 MG TAB PO SCH (08:16)
[2018-02-20] MEDS: Multivitamin W/ Minerals 1 TAB PO SCH (08:16)
--- NOTE | 2018-02-20 08:20 | PRG ---
DATE OF SERVICE: 02/19/2018 SUBJECTIVE: The patient feels well with no complaints of cough, shortness of breath, or chest pain. He is lying in the bed. Eating well. OBJECTIVE: VITAL SIGNS: Show temperature 97.5; pulse 87; respirations 24; O2 saturation is 95%, but still on 2 L; and blood pressure 137/73. LUNGS: Clear. CARDIAC: Shows regular rhythm. No gallop or murmurs. ABDOMEN: Soft and nontender. IMAGING STUDIES: Repeat chest x-ray yesterday showed stable COPD with questionable resolving infiltrate. LABORATORY DATA: White count yesterday is 11,500, hematocrit is 29, and hemoglobin 9.2. Sodium is 138, potassium is 3.3, chloride 105, bicarbonate 23, BUN 12, creatinine 0.72, and albumin 2.6. ASSESSMENT: 1. Resolving pneumonia, on oral cefdinir and stable chronic obstructive pulmonary disease. 2. Stable malnutrition and deconditioning. The patient is eating well. Still not ambulating secondary to recent pelvic fracture. 3. Stable dementia. PLAN: 1. Discontinue oxygen and monitor sats off oxygen. Possible discharge tomorrow. 2. Continue oral nutrition, pain relief as needed. 3. Continue handheld nebulizers and oral inhalers as needed for COPD. Job ID: [id number]
[2018-02-20 08:38] VITALS: BP 129/59; TEMP 98.4
--- NOTE | 2018-02-21 07:50 | DIS ---
DATE OF ADMISSION: 02/13/2018 DATE OF DISCHARGE: 02/20/2018 FINAL DIAGNOSES: 1. Bilateral pneumonia. 2. Chronic obstructive pulmonary disease exacerbation. 3. Hypertension. 4. Dementia with behavioral disturbance, controlled with medication. 5. Hypothyroidism. HOSPITAL COURSE: The patient is an 87-year-old white male, [facility] secondary to dementia with behavioral disturbances, COPD, and hypertension, who has been essentially chair ridden since he suffered an acetabular pubic ramus fracture, last month. He has had a history of COPD as mentioned above and has had admission to the hospital for exacerbations after a fall with fracture of his ribs. This admission was prompted when he began to have increasing cough and some respiratory distress. He had a chest x-ray, which showed bilateral perihilar infiltrates, increased in the right lower lobe and an increased white count of 31,000. He had no evidence of sepsis, but was confused which was his baseline, but was felt that he may be on the verge of sepsis and was admitted to the hospital for IV antibiotics and aggressive bronchodilator therapy. On admission, his blood pressure was 159/92, respirations 22, O2 sat was 96%, but he had been placed on 2 L shortly after admission. Lungs showed decreased breath sounds with a few rales and rhonchi on the right base, rare wheezes. Cardiac examination showed regular rhythm. He was started on broad-spectrum antibiotics for healthcare-associated pneumonia with vancomycin and Zosyn. Blood cultures were done and he was started on hand-held nebulizers q.i.d. and p.r.n. and oxygen to maintain a sat rate of 93%. He was also started on IV fluids in the emergency room. The next morning, he was improved with a white count of 22,500 with no fever, but did show some increased congestion on pulmonary exam and his fluids were discontinued as he was eating much better. He was made a do not resuscitate category at the patient's family request. He is slowly maturely improved. He had no respiratory distress, was eating well with no cough, no evidence of aspiration, still maintained; however, on oxygen to maintain a sat greater than 93%, but was weaned down to 2L. His white count was completely normalized by the third hospital day to 11,800. His sodium was 142, potassium 3.5, chloride 109, bicarb 22, BUN 20, creatinine 0.75. He was found to be malnourished with albumin of 2.7, but was eating well. BNP was slightly elevated at 147. Cardiac enzymes were normal and lactate as mentioned above on admission was normal at 1.7. He was continued off IV fluids, but was monitored and was continued to eat well. Continued on hand-held nebulizers slowly, but surely improved. Had no symptoms of cough or shortness of breath. Finally, his oxygen was able to be discontinued, and on discharge, his vital signs showed him to have O2 sat of 92% on room air, respirations 22, blood pressure , temperature 97.3. His lungs were clear. Cardiac examination showed regular rhythm. Abdomen was soft and nontender. Potasium was found to be slightly low at 3.3 and this will be [facility] an [facility] at the [facility]. DISCHARGE MEDICATIONS: He was discharged home on his home meds of, 1. Amlodipine 5 mg daily. 2. Depakote 250 daily. 3. Famotidine 20 daily. 4. Hand-held nebulizer with DuoNeb q.4 p.r.n. 5. Levothyroxine 50 mcg daily. 6. One week more of cefdinir 300 twice daily. FOLLOWUP: He will [facility] at the [facility]. Job ID: [id number]
--- NOTE | 2018-02-21 12:03 | PQF ---
BETSY FERRARA LUKE MD [id number] [id number] CLINICAL DOCUMENTATION CLARIFICATION FORM: POST DISCHARGE Addendum to original discharge summary date: ____ Late entry note date: __ DATE: 02/21/2018 ATTN: DR. DISLA Please exercise your independent, professional judgment in responding to the clarification form. Clinical indicators are provided on the bottom of this form for your review Please check appropriate box(s): HEART FAILURE: A. TYPE: [ ] Systolic / HFrEF [ ] Diastolic / HFpEF [ ] Combined Systolic / Diastolic B. ACUITY [ ] Acute [ ] Acute on Chronic [ ] Chronic [ ] Other diagnosis [ ] Unable to determine In addition, please specify: Present on Admission (POA): [ ] Yes [ ] No [ ] Unable to determine For continuity of documentation, please document condition throughout progress notes and discharge summary. Thank You. CLINICAL INDICATORS - SIGNS / SYMPTOMS / LABS: 02/14-02/15- PN - Elevated BNP, Probable diastolic heart failure 02/16-02/17- PN - Diastolic congestive heart failure RISKS: Hypertension Pneumonia TREATMENTS: CXR IV Fluids (This form is maintained as a part of the permanent medical record) 2014 [employer]. All Rights Reserved Delma Guerrero, RON, [employer] [facility] [employer]-H [email or web address] [phone] MTDD
--- NOTE | 2018-02-21 12:08 | PQF ---
BETSY FERRARA LUKE MD [id number] CLINICAL DOCUMENTATION CLARIFICATION FORM: POST DISCHARGE Addendum to original discharge summary date: ____ Late entry note date: __ Date: 02/21/2018 ATTN: DR. DISLA Please exercise your independent, professional judgment in responding to the clarification form. Clinical indicators are provided on the bottom of this form for your review Please check appropriate box(s): [ ] Protein Calorie Malnutrition: [ ] Mild [ ] Moderate [ ] Severe [ ] Other Malnutrition (please specify) [ ] Other diagnosis [ ] Unable to determine In addition, please specify: Present on Admission (POA): [ ] Yes [ ] No [ ] Unable to determine CLINICAL INDICATORS - SIGNS / SYMPTOMS / LABS: 02/19 PN- [place] BMI of 16.8 RISK FACTORS: Pneumonia Dementia TREATMENT: Oral nutrition Moderate Malnutrition (in acute illness) Energy Intake: <75% of estimated energy requirement for > 7 days Weight Loss: 1-2%/1 week; 5%/ 1 month; 7.5%/3 months Other: mild body fat loss; mild muscle mass loss; mild fluid accumulation; Severe Malnutrition (in acute illness) Energy Intake: < 50% of estimated energy requirement for > 5 days Weight Loss: >1-2%/1 week; >5%/1 month; >7.5%/3 months Other: moderate body fat loss; moderate muscle mass loss; moderate- severe fluid accumulation; measurably reduced solution specialist strength Moderate Malnutrition (in chronic illness) Energy Intake: <75% of estimated energy requirement for >1 month Weight Loss: 5%/1 month; 7.5%/3 months; 10%/6 months; 20%/1 year Other: mild body fat loss; mild muscle mass loss; mild fluid accumulation Severe Malnutrition (in chronic illness) Energy Intake: <75% of estimated energy requirement for >1 month Weight Loss: >5%/1 month; >7.5%/3 months; >10%/6 months; >20%/1 year Other: severe body fat loss; severe muscle mass loss; severe fluid accumulation ; measurably reduced solution specialist strength (This form is maintained as a part of the permanent medical record) 2014 [employer]. All Rights Reserved Delma Guerrero, RON, [email or web address] [phone] MTDD
== END 2018-02-20 10:58 | DRG 194 ==
LOC: NAV ERS 16:19 → NAV ACUTE 19:29
PROVIDERS: ADMIT Internal Medicine; ATTEND Internal Medicine
DX: J18.9 Pneumonia, unspecified organism (principal); J44.0 Chronic obstructive pulmonary disease with (acute) lower respiratory infection; E46 Unspecified protein-calorie malnutrition; I50.30 Unspecified diastolic (congestive) heart failure; Z68.1 Body mass index [BMI] 19.9 or less, adult; Y95 Nosocomial condition; Z66 Do not resuscitate; Z86.73 Personal history of transient ischemic attack (TIA), and cerebral infarction without residual deficits; E03.9 Hypothyroidism, unspecified; F03.90 Unspecified dementia, unspecified severity, without behavioral disturbance, psychotic disturbance, mood disturbance, and anxiety; Z87.891 Personal history of nicotine dependence; W19.XXXD Unspecified fall, subsequent encounter; S32.592D Other specified fracture of left pubis, subsequent encounter for fracture with routine healing; I11.0 Hypertensive heart disease with heart failure
CPT/HCPCS: 36415; 71045; 80053; 80202; 81003; 81015; 82553; 83605; 83880; 84484; 85007; 85025; 85027; 87040; 87086; 94640; J2543; J3370; J7050; J7620